=== PATIENT | female | born 1990 | race Two or more races ===

== ENCOUNTER 2018-07-01 09:33 | Emergency (ER) | payer OTHER ==
[~2018-07-01] VITALS: Ht 157.5 cm; Wt 77.1 kg
[2018-07-01] MEDS ORDERED: Tetanus/Diptheria/Pertussis Vaccine 0.5ml Syr IM ONE (10:00)
[2018-07-01 10:18] VITALS: BP 139/91
--- NOTE | 2018-07-01 10:57 | Diagnostic Imaging Report ---
Indication: left hand pain. Findings: 3 views of the left hand were obtained. There is soft tissue swelling present. No definite fracture is identified. No malalignment seen. IMPRESSION: Soft tissue swelling. No acute injury appreciated
[2018-07-01 11:25] VITALS: BP 139/91
--- NOTE | 2018-07-01 13:42 | Emergency Room Report ---
History of Present Illness General Chief Complaint: Upper Extremity Injury Source: Patient Present Illness HPI Patient presents with injury and trauma to the left hand The injury occurred approximately 630 this morning Patient reports that she was initially sent to workers comp clinic on [place] patient initially drove from [place] From there patient was referred to the ER and presented to our ER Complains of significant pain to the hand itself there were 2 puncture type wounds present on the thenar eminence as well However patient describes a fairly purely crush type injury with what sounds to be a forklift type apparatus Patient denies any elbow pain denies any shoulder pain Denies any other trauma to the head Pain is 9 out of 10 and worsened with any movement of the hand Allergies: Coded Allergies: No Known Allergies (Unverified , 07/01/18) Patient History Past Medical History: see triage record Pertinent Family History: none Last Menstrual Period: 06/14/18 Reviewed Nursing Documentation: PMH: Agreed; PSxH: Agreed Nursing Documentation-PMH Past Medical History: No History, Except For History Of Psychiatric Problem: Yes - anxiety Review of Systems All Other Systems: negative except mentioned in HPI Physical Exam Vital Signs Date Time Temp Pulse Resp B/P (MAP) Pulse Ox O2 Delivery O2 Flow Rate FiO2 07/01/18 09:38 98.1 78 18 139/91 98 Room Air Sp02 EP Interpretation: reviewed, normal General Appearance: well appearing - However in acute pain Head: normocephalic, atraumatic Eyes: bilateral eye PERRL, bilateral eye EOMI ENT: normal pharynx, no angioedema Neck: supple Respiratory: lungs clear Cardiovascular #1: regular rate, rhythm Gastrointestinal: non tender, soft Musculoskeletal: swelling - Obvious trauma to the left hand swelling noted to the thenar and hyperthenar eminence, fingers appears swollen as well the forearm feels also swollen and, more taut in the right side, sensory is intact however minimal flexion or extension of the digits, causes increased pain Neurologic: alert, oriented x3, responsive Skin: other - Swelling is noted above there is also to small approximately 2-3 mm round circular lesions which appeared to be initially puncture type wounds however could potentially be pressure type injury Lymphatic: no adenopathy Procedures Splinting Splinting : Consent: Verbal Location: Left hand Pre-Made Type: Volar Splint: volar Pre-Proc Neuro Vasc Exam: normal Post-Proc Neuro Vasc Exam: normal Patient Tolerated: Well Complications: None Medical Decision Making Diagnostic Impression: Primary Impression: crush injury ER Course Patient's presentation is extremely concerning for a crush type injury With secondary compartment syndrome type injury Patient's initial injury was in [place], patient was referred to workers comp clinic on [place] and from there the patient had been sent to our emergency room without any previous contact Unfortunately we do not have a hand specialty on-call Orthopedic specialty was contacted and they recommend transfer to tertiary facility with appropriate specialist [facility] was contacted After 2 different attempts there was no contact back from the accepting physician Therefore the emergency room was contacted I spoke to beau who reports that she will provide the information to the on- duty ER physician With respect to the best judgment for the patient and the best outcome, with respect to not delaying care any further patient did have x-rays obtained which did not show any fracture tetanus shot was provided A splint was also applied And the patient is disposition to follow at [facility] for further hand specialty follow-up I did make one other contacted [facility] in order to obtain specific direct physician to physician conversation however was not able to speak to a physician in the ER Other X-Ray Diagnostic Results Other X-Ray Diagnostic Results : X-Ray ordered: Left hand # of Views/Limited Vs Complete: 3 View Indication: Pain EP Interpretation: Yes Interpretation: no dislocation, no fractures, other - Soft tissue swelling Impression: Other - Soft tissue swelling Electronically Signed by: Edilberto Ojeda DO Last Vital Signs Date Time Temp Pulse Resp B/P (MAP) Pulse Ox O2 Delivery O2 Flow Rate FiO2 07/01/18 11:25 98.1 18 139/91 98 Room Air 07/01/18 10:18 78 Status: improved Disposition: HOME, SELF-CARE Condition: Improved Scripts Unable to Obtain Active Prescriptions or Reported Meds Referrals: NOT CHOSEN IPA/MD,REFERRING (PCP) Patient Instructions: Crush Injury, Fingers or Toes, [id number] Additional Instructions: you require hand specialty consultation on an emergent basis Edilberto Ojeda DO Jul 01, 2018 13:42
== END 2018-07-01 11:10 | disposition home or self-care (01) ==
LOC: EMR 10:15
DX: S67.22XA Crushing injury of left hand, initial encounter (principal); S61.432A Puncture wound without foreign body of left hand, initial encounter; W31.82XA Contact with other commercial machinery, initial encounter; Y92.69 Other specified industrial and construction area as the place of occurrence of the external cause; Z23 Encounter for immunization; F17.200 Nicotine dependence, unspecified, uncomplicated; F41.9 Anxiety disorder, unspecified
CPT/HCPCS: 29125; 90471; 90715; 99283